=== PATIENT | female | born 1980 | race Caucasian/White ===

== ENCOUNTER 2024-05-21 20:40 | Emergency (ER) | payer SELFPAY ==
[~2024-05-21] VITALS: Ht 157.5 cm; Wt 74.0 kg
[2024-05-21 20:52] VITALS: O2SAT 99
[2024-05-21] MEDS: KETOROLAC 15MG/ML VIAL IM ONE (22:30)
[2024-05-21 22:37] VITALS: BP 139/57; PULSE 97; RESP 20; TEMP 99.8
[2024-05-21] MEDS: LORAZEPAM 0.5MG TABLET PO ONE (23:05)
== END 2024-05-21 23:17 | disposition home or self-care (01) ==
LOC: ER 20:40
DX: F41.9 Anxiety disorder, unspecified (principal); Z98.890 Other specified postprocedural states
CPT/HCPCS: 99283; 71045; 81025; J1885

== ENCOUNTER 2024-06-01 02:10 | Emergency (ER) | payer SELFPAY ==
[~2024-06-01] VITALS: Ht 157.5 cm; Wt 73.0 kg
[2024-06-01 02:23] VITALS: BP 130/75; RESP 18; TEMP 98; O2SAT 99
[2024-06-01 02:24] VITALS: PULSE 94
[2024-06-01] MEDS ORDERED: MAGNESIUM/ALUMINUM HYDROXIDE/SIMETHICONE 30ML UDC PO STA (03:15)
[2024-06-01] MEDS ORDERED: DICYCLOMINE 10 MG/5 ML ORAL SYR PO STA (03:15)
[2024-06-01 03:41] LABS: BASOPHILS % 0.4 % (0.0-2.0); EOSINOPHILS % 0.7 % (0.0-5.0); HEMATOCRIT. 35.1 % (36.0-48.0); HEMOGLOBIN. 11.7 g/dL (12.0-16.0); LYMPHOCYTES % 27.8 % (20.0-50.0); MEAN CORPUSCULAR HEMOGLOBIN 26.7 pg (28.0-32.0); MEAN CORPUSCULAR HGB CONC 33.4 g/dL (31.0-37.0); MEAN PLATELET VOLUME 8.3 fl (7.4-10.4); MONOCYTES % 4.8 % (2.0-8.0); NEUTROPHILS % 66.3 % (40.0-76.0); PLATELET 359 x1000/uL (130-400); RED BLOOD CELL COUNT 4.39 mill/uL (4.2-5.4); RED CELL DISTRIBUTION WIDTH 16.4 % (11.6-14.6); WHITE BLOOD COUNT 8.8 x1000/uL (4.5-11.0)
[2024-06-01 03:47] LABS: CARBON DIOXIDE 25 mEq/L (21-32); CHLORIDE 104 mEq/L (98-107); POTASSIUM 3.4 mEq/L (3.5-5.1); SODIUM 138 mEq/L (136-145)
[2024-06-01 03:48] LABS: CALCIUM 9.5 mg/dL (8.7-10.4)
[2024-06-01 03:53] LABS: CREATININE 0.8 mg/dL (0.6-1.0); GLUCOSE 97 mg/dL (70-105); HCG SCREEN NEGATIVE; PROTHROMBIN TIME 11.1 sec (9.6-11.0)
[2024-06-01 03:54] LABS: UREA NITROGEN BLOOD < 5 mg/dL (9-23)
[2024-06-01] MEDS ORDERED: DICYCLOMINE HCL 10MG CAPSULE PO NR (04:15)
[2024-06-01] MEDS ORDERED: FAMOTIDINE 20MG TABLET PO ONE (06:15)
[2024-06-01] MEDS ORDERED: KETOROLAC 30MG/ML VIAL IM ONE (06:15)
[2024-06-01] MEDS ORDERED: MAGNESIUM/ALUMINUM HYDROXIDE/SIMETHICONE 30ML UDC PO ONE (06:15)
[2024-06-01] MEDS ORDERED: ACETAMINOPHEN 325MG TABLET PO ONE (06:15)
[2024-06-01 07:05] LABS: ALANINE AMINOTRANSFERASE 31 IU/L (10-49); BILIRUBIN TOTAL 0.6 mg/dL (0.1-1.0)
[2024-06-01 07:06] LABS: ALBUMIN 4.9 g/dL (3.2-4.8); ASPARTATE AMINOTRANSFERASE 35 IU/L (<34); BILIRUBIN DIRECT 0.2 mg/dL (<=3.0); PROTEIN TOTAL 8.1 g/dL (6.0-8.3)
[2024-06-01 07:24] LABS: TROPONIN I HIGH SENSITIVITY < 4 ng/L (3.0-34)
[2024-06-01] MEDS ORDERED: FAMO-135 MT (07:27)
== END 2024-06-01 08:37 | disposition home or self-care (01) ==
LOC: ER 02:10
DX: R10.13 Epigastric pain (principal); K21.9 Gastro-esophageal reflux disease without esophagitis
CPT/HCPCS: 36415; 71045; 76705; 80048; 80076; 84484; 84703; 85025; 99284